=== PATIENT | female | born 1965 | race Caucasian/White ===

== ENCOUNTER 2016-10-26 15:57 | Emergency (ER) | payer BC ==
[~2016-10-26] VITALS: Ht 157.5 cm; Wt 97.8 kg
[~2016-10-26 15:57] MED LIST: LRT5 PO
[2016-10-26 16:14] VITALS: TEMP 36.7; O2SAT 97; Ht 157.5 cm; Wt 97.8 kg
[2016-10-26] MEDS ORDERED: ASPIRIN 324 MG CHEW PO STA (16:19)
[2016-10-26] MEDS ORDERED: CZR50 PO (16:26)
[2016-10-26] MEDS ORDERED: CHOL1000 PO (16:27)
[2016-10-26] MEDS ORDERED: NITROGLYCERIN OINT 2% 1GM PACKET EXT ONE (16:30)
[2016-10-26] MEDS ORDERED: SODIUM CHLORIDE 0.9% 1000ML 1,000 ML IV ONE (16:30)
[2016-10-26 16:41] LABS: BASO % 0.7 %; BASO ABS # 0.09 K/uL (0-0.2); COMPLETE YES; EOS % 1.4 %; HEMATOCRIT 45.9 % (37-47); IG% 0.1 %; LYMPH % 20.8 %; LYMPH ABS # 2.78 K/uL (1.2-3.4); MEAN CELL VOLUME 92.5 fL (80-100); MEAN CORPUSCULAR HEMOGLOBIN 31.5 pg (25-34); MEAN PLATELET VOLUME 10.8 fL (7.4-10.4); PLATELET COUNT 310 K/uL (130-400); RED BLOOD COUNT 4.96 M/uL (4.2-5.4); WHITE BLOOD COUNT 13.34 K/uL (4.8-10.8)
--- NOTE | 2016-10-26 16:44 | DIAGNOSTIC IMAGING REPORT ---
CHEST ONE VIEW PORTABLE CLINICAL HISTORY: Difficult chest pain COMPARISON STUDY: No previous studies for comparison. FINDINGS: The cardiac and mediastinal contours are normal. There is no evidence of focal pulmonary consolidation. There is no evidence of failure. No pleural effusions are visualized.[ IMPRESSION: No active disease in the chest. Electronically signed by: Jordin Caban M.D. 10/26/2016 4:43 PM Dictated Date/Time: 10/26/2016 4:42 PM
[2016-10-26 16:56] LABS: POINT OF CARE TROPONIN I < 0.030 ng/ml (0-0.045)
[2016-10-26 17:06] LABS: CREATININE 0.75 mg/dl (0.60-1.20); MAGNESIUM 2.2 mg/dl (1.8-2.4); POTASSIUM 3.7 mmol/L (3.5-5.1)
[2016-10-26 17:17] LABS: THYROID STIMULATING HORMONE 0.944 uIu/ml (0.300-4.500)
[2016-10-26 17:54] LABS: MANUAL MICROSCOPIC REQUIRED? NO; REVIEW REQ? NO; URINE APPEARANCE CLEAR (CLEAR); URINE BILIRUBIN NEG (NEG); URINE COLOR YELLOW; URINE EPITHELIAL CELL AUTO 20-30 /lpf (0-5); URINE NITRITE NEG (NEG); URINE PH 6.5 (4.5-7.5); UROBILINOGEN NEG (NEG); ZZUR CULT IF INDIC CLEAN CATCH NO
[2016-10-26] MEDS ORDERED: ONDANSETRON INJ 2 MG/ML 2 ML VIAL IV STA (18:26)
[2016-10-26] MEDS ORDERED: KETOROLAC TROMETHAMINE 30 MG/ML VIAL IV STA (18:26)
[2016-10-26] MEDS ORDERED: MoRPHine SULFATE 4 MG/ML 1 ML CARP\\VIAL IV ONE (18:30)
[2016-10-26 18:53] VITALS: BP 122/80; PULSE 72; O2SAT 98
--- NOTE | 2016-10-26 22:22 | EMERGENCY ROOM VISIT NOTE ---
History First contact with patient: 16:11 Chief Complaint: CHEST PAIN Stated Complaint: CHEST PAIN Nursing Triage Summary: Patient reports a several month history of intermittent epigastric/lower chest presure, described as a burning indigestion feeling. Patient reports simiar symptoms 19 years ago and was diagnosed with gallbladder issues. Patient denies any nausea/vomiting/diaphoresis, SOB, or diarrhea. History of Present Illness The patient is a 51 year old female who presents to the Emergency Room with complaints of substernal chest pain off-and-on for the past several months. The patient states that her pain is typically like a burning/indigestion feeling. Her symptoms do not appear to improve or worsen with food or activity. She does not have fever, chills, nausea, vomiting, diarrhea, or shortness of breath. She attempted to get in with her primary care physician's office, and evidently has an appointment in 4 hours. She elected to come to the emergency department due to her symptoms. She rates her current pain a 7/ 10. She has not taken anything [id number] for her symptoms. She does not have a history of coronary artery disease or diabetes. She does have hypertension and takes losartan. She does not report a family history of cardiopulmonary disease. No injury or trauma. No recent travel history. Review of Systems More than 10 systems were reviewed and otherwise negative with the exception of history of present illness. Past Medical/Surgical History Medical Problems: (1) Benign hypertension (2) Bilateral tubal ligation (3) TOBACCO USE DISORDER Family History No pertinent family history Social History Smoking Status: Current Every Day Smoker Alcohol Use: occasionally Marital Status: Occupation Status: employed Current/Historical Medications Scheduled Cholecalciferol (Vitamin D3), 1,000 INTER.UNIT PO HS Losartan Potassium (Losartan Potassium), 50 MG PO QPM Physical Exam Vital Signs Date Time Temp Pulse Resp B/P (MAP) Pulse Ox O2 Delivery O2 Flow Rate FiO2 10/26/16 18:53 72 20 122/80 98 Room Air 10/26/16 17:49 82 16 174/93 96 10/26/16 16:57 77 27 99 10/26/16 16:28 91 10/26/16 16:27 94 18 97 10/26/16 16:14 97 Room Air 10/26/16 16:14 36.7 91 24 188/109 97 Room Air 10/26/16 16:05 188/109 Pain Rating (0-10): 0 Physical Exam VITALS: Vitals are noted on the nurse's note and reviewed by myself. Vital signs with elevated blood pressure GENERAL: Well-developed, well-nourished, white female, who is in no acute distress and resting comfortably. Patient is cooperative with the examination. HEAD: Normocephalic atraumatic. HEART: Regular rate and rhythm without murmurs gallops or rubs. LUNGS: Clear to auscultation bilaterally without wheezes, rales or rhonchi. No retractions or accessory muscle use. ABDOMEN: Positive normal bowel sounds x 4. Soft, nontender, without masses or organomegaly. No guarding or rebound tenderness. No CVA tenderness MUSCULOSKELETAL: No muscle atrophy, erythema, or edema noted. Full range of motion without joint tenderness in all extremities. Negative Homans sign Medical Decision & Procedures ER Provider Diagnostic Interpretation: CHEST ONE VIEW PORTABLE CLINICAL HISTORY: Difficult chest pain COMPARISON STUDY: No previous studies for comparison. FINDINGS: The cardiac and mediastinal contours are normal. There is no evidence of focal pulmonary consolidation. There is no evidence of failure. No pleural effusions are visualized.[ IMPRESSION: No active disease in the chest. Laboratory Results 10/26/16 16:03 Red Blood Count 4.96, Mean Corpuscular Volume 92.5, Mean Corpuscular Hemoglobin 31.5, Mean Corpuscular Hemoglobin Concent 34.0, Mean Platelet Volume 10.8, Neutrophils (%) (Auto) 70.0, Lymphocytes (%) (Auto) 20.8, Monocytes (%) (Auto) 7.0, Eosinophils (%) (Auto) 1.4, Basophils (%) (Auto) 0.7, Neutrophils # (Auto) 9.32, Lymphocytes # (Auto) 2.78, Monocytes # (Auto) 0.94, Eosinophils # (Auto) 0.19, Basophils # (Auto) 0.09 10/26/16 16:03 Test 10/26/16 00:00 10/26/16 16:03 10/26/16 16:37 Urine Color YELLOW Urine Appearance CLEAR (CLEAR) Urine pH 6.5 (4.5-7.5) Urine Specific [place] 1.020 (1.000-1.030) Urine Protein NEG (NEG) Urine Glucose (UA) NEG (NEG) Urine Ketones NEG (NEG) Urine Occult Blood TRACE (NEG) Urine Nitrite NEG (NEG) Urine Bilirubin NEG (NEG) Urine Urobilinogen NEG (NEG) Urine Leukocyte Esterase NEG (NEG) Urine WBC (Auto) 1-5 /hpf (0-5) Urine RBC (Auto) 5-10 /hpf (0-4) Urine Hyaline Casts (Auto) 1-5 /lpf (0-5) Urine Epithelial Cells (Auto) 20-30 /lpf (0-5) Urine Bacteria (Auto) NEG (NEG) White Blood Count 13.34 K/uL (4.8-10.8) Red Blood Count 4.96 M/uL (4.2-5.4) Hemoglobin 15.6 g/dL (12.0-16.0) Hematocrit 45.9 % (37-47) Mean Corpuscular Volume 92.5 fL (80-100) Mean Corpuscular Hemoglobin 31.5 pg (25-34) Mean Corpuscular Hemoglobin Concent 34.0 g/dl (32-36) Platelet Count 310 K/uL (130-400) Mean Platelet Volume 10.8 fL (7.4-10.4) Neutrophils (%) (Auto) 70.0 % Lymphocytes (%) (Auto) 20.8 % Monocytes (%) (Auto) 7.0 % Eosinophils (%) (Auto) 1.4 % Basophils (%) (Auto) 0.7 % Neutrophils # (Auto) 9.32 K/uL (1.4-6.5) Lymphocytes # (Auto) 2.78 K/uL (1.2-3.4) Monocytes # (Auto) 0.94 K/uL (0.11-0.59) Eosinophils # (Auto) 0.19 K/uL (0-0.5) Basophils # (Auto) 0.09 K/uL (0-0.2) RDW Standard Deviation 47.3 fL (36.4-46.3) RDW Coefficient of Variation 14.0 % (11.5-14.5) Immature Granulocyte % (Auto) 0.1 % Immature Granulocyte # (Auto) 0.02 K/uL (0.00-0.02) Anion Gap 6.0 mmol/L (3-11) Est Creatinine Clear Calc Drug Dose 99.1 ml/min Estimated GFR () 108.5 Estimated GFR (Non- 93.6 BUN/Creatinine Ratio 16.0 (10-20) Calcium Level 9.0 mg/dl (8.5-10.1) Magnesium Level 2.2 mg/dl (1.8-2.4) Total Bilirubin 0.3 mg/dl (0.2-1) Aspartate Amino Transf (AST/SGOT) 16 U/L (15-37) Alanine Aminotransferase (ALT/SGPT) 20 U/L (12-78) Alkaline Phosphatase 77 U/L (45-117) Total Protein 7.3 gm/dl (6.4-8.2) Albumin 3.7 gm/dl (3.4-5.0) Globulin 3.6 gm/dl (2.5-4.0) Albumin/Globulin Ratio 1.0 (0.9-2) Lipase 126 U/L (73-393) Thyroid Stimulating Hormone (TSH) 0.944 uIu/ml (0.300-4.500) Bedside D-Dimer 325 ng/mlFEU (0-450) Bedside Troponin I < 0.030 ng/ml (0-0.045) Medications Administered Medications (Trade) Dose Ordered Sig/Lucas Route Start Time Stop Time Status Last Admin Dose Admin Aspirin (Aspirin Chew) 324 mg NOW STAT PO 10/26/16 16:19 10/26/16 16:21 DC 10/26/16 16:43 324 MG Nitroglycerin (Nitroglycerin 2% Oint) 1 inch NOW ONCE EXT 10/26/16 16:30 10/26/16 16:31 DC 10/26/16 16:44 1 INCH Sodium Chloride 1,000 ml @ 999 mls/hr Q1H1M ONCE IV 10/26/16 16:30 10/26/16 17:30 DC 10/26/16 16:43 999 MLS/HR Morphine Sulfate (MoRPHine SULFATE INJ) 4 mg NOW ONCE IV 10/26/16 18:30 10/26/16 18:31 DC 10/26/16 18:38 4 MG Ketorolac Tromethamine (Toradol Inj) 30 mg NOW STAT IV 10/26/16 18:26 10/26/16 18:27 DC 10/26/16 18:38 30 MG Ondansetron HCl (Zofran Inj) 4 mg NOW STAT IV 10/26/16 18:26 10/26/16 18:27 DC 10/26/16 18:38 4 MG ECG Change: Normal sinus rhythm @75 bpm Possible Left atrial enlargement Low voltage QRS Borderline ECG When compared with ECG of 22-JAN-1997 08:02, No significant change was found ED Course Physical exam and history were performed. Nursing notes, EMR, and Medication List were personally reviewed. Patient appears to have substernal chest pain off and on for the past several months. On examination the patient does not have reproducible tenderness. IV access was established and labs were obtained. The patient was given aspirin and 1 inch Nitropaste. EKG was without acute ST elevation or signs of ischemia. She was placed on the environmental monitoring technician. The patient's blood work is as above and was reviewed. She does have a very slightly elevated white blood cell count of 13,000. She does not have a significant anemia, bandemia, or gross electrolyte imbalance. Lipase and transaminases are nondiagnostic. Troponin 1 is negative. D-dimer is also negative. Chest x-ray was without acute findings. She remained in normal sinus rhythm on the environmental monitoring technician. The aspirin and nitro paste did not improve her pain. On reevaluation the patient continued without palpable tenderness. I clinically suspect that her symptoms may be related to a gastritis or GERD. Last likely, but certainly possible, would be biliary colic, however the patient does not have right upper quadrant tenderness at this time. I discussed the case with my attending physician, and we feel the patient is low risk for cardiopulmonary events. She does have a preference for discharge home, which appears reasonable. The patient was given IV morphine and IV Toradol prior to discharge. She may continue [id number] analgesics at home. She will need to have close follow-up with her primary care physician, as she may need endoscopy or further workup as an outpatient. The patient and family were invited back to the ER with any new, worsening, or concerning symptoms. The patient was pleased with discharge and rated her discomfort a 0/ 10 at the time of departure. She was discharged home with her who is acting as the driver guide today. The chart was completed utilizing [employer] Voice Recognition Software. Grammatical errors, random word insertions, pronoun errors, and incomplete sentences are an occasional consequence of this system due to software limitations, ambient noise, and hardware issues. Any formal questions or concerns about the content, text, or information contained within the body of this dictation should be directly addressed to the provider for clarification. . Medical Decision Differential diagnosis includes, but is not limited to: Myocardial infarction, dysrhythmia, pericarditis, pneumothorax, aortic aneurysm/dissection, DVT/PE, anxiety, GERD, PUD, electrolyte imbalance, thyroid disorder, pneumonia, bronchitis, pancreatitis, and others Medication Reconcilliation Current Medication List: was personally reviewed by me Blood Pressure Screening Patient's blood pressure: Elevated blood pressure Blood pressure disposition: Elevated BP felt to be situational (BP improved while in ER care. Follow up with PCP. ) Impression Primary Impression: Substernal chest pain Departure Information Dispostion Home / Self-Care Forms HOME CARE DOCUMENTATION FORM, IMPORTANT VISIT INFORMATION Patient Instructions [facility] Additional Instructions You were seen and evaluated today on an emergency basis only. This is not a substitute for, or an effort to provide, complete comprehensive medical care. It is not possible to recognize and treat all injuries or illnesses in a single emergency department visit. For this reason it is recommended that you followup with your primary care physician on Sunday or Sunday for recheck of your condition. Call tomorrow morning to help make her appointment. Let them know you were in the ER to help facilitate appointment. For baseline pain relief you may alternate ibuprofen and acetaminophen every 4 hours for pain control. Take 600 mg ibuprofen (Advil) and then 4 hours later take 1000 mg acetaminophen (Tylenol). Do not take more than 3000 mg acetaminophen in a single day. Drink plenty of fluids and remain well hydrated. If your symptoms worsen or evolve, please return to the emergency department anytime.
[2016-11-23] MEDS ORDERED: LOSA1TAB38 PO (13:27)
[2016-11-23] MEDS ORDERED: NXM/40 PO (13:28)
[2016-11-23] MEDS ORDERED: CHOL100010 PO (13:29)
== END 2016-10-26 19:10 | disposition home or self-care (01) ==
LOC: C.EDB 15:59 → C.EDC 19:10
DX: R07.2 Precordial pain (principal); I10 Essential (primary) hypertension; F17.200 Nicotine dependence, unspecified, uncomplicated; Z98.51 Tubal ligation status; Z79.899 Other long term (current) drug therapy

== ENCOUNTER → 2016-10-31 | Outpatient (CLI) | payer BC ==
[~2016-10-31] MED LIST changes: +CHOL1000 PO; +CHOL100010 PO; +CZR50 PO; +IBUP600T44 PO; +LOSA1TAB38 PO; -LRT5 PO; +NXM/40 PO; +OXYC-57 PO
--- NOTE | 2016-10-31 09:20 | DIAGNOSTIC IMAGING REPORT ---
ABDOMEN COMPLETE (US) CLINICAL HISTORY: Generalized abdominal pain. COMPARISON STUDY: No previous studies for comparison. FINDINGS: This exam is mildly compromised by suboptimal penetration. Hepatic echogenicity is slightly increased. No hepatic lesions are identified and there is no biliary ductal dilatation. Common bile duct measures 4 mm in caliber. There is a large gallstone within the gallbladder. This measures approximately 5.2 cm. There is no gallbladder wall thickening. There may be adenomyomatosis within the gallbladder wall. There is no pericholecystic fluid. The pancreas is partially obscured. The pancreatic body is normal. The size of the spleen is normal. The right kidney measures 11.5 cm and the left measures 11.3 cm. There is a small left parapelvic cyst. There is no hydronephrosis. Renal echogenicity, size and cortical thickness are normal. The caliber of the abdominal aorta is normal. Visualized portions of the IVC are patent. IMPRESSION: 1. Large gallstone within the gallbladder. No gallbladder wall thickening. No sonographic evidence of acute cholecystitis. 2. No biliary ductal dilatation. 3. Possible fatty infiltration of liver. 4. Partially obscured pancreas. Electronically signed by: Bry Marcano M.D. 10/31/2016 9:19 AM Dictated Date/Time: 10/31/2016 9:12 AM
== END | disposition home or self-care (01) ==
LOC: C.ULTRBC 08:16
PROVIDERS: ATTEND Family Medicine
DX: R10.84 Generalized abdominal pain (principal); K80.20 Calculus of gallbladder without cholecystitis without obstruction

== ENCOUNTER 2016-11-29 07:33 | Day surgery (SDC) | payer BC ==
[2016-11-23 13:30] VITALS: BMI 38.0
[~2016-11-29] VITALS: Ht 157.5 cm; Wt 95.9 kg
[~2016-11-29 07:33] MED LIST changes: +CEFOXITIN IV 2,000 MG in DEXTROSE 5% 50ML 50 ML IV SCH; -CHOL1000 PO; -CZR50 PO; -IBUP600T44 PO; +LACTATED RINGER'S 1000ML 1,000 ML IV SCH; -OXYC-57 PO
[2016-11-29 07:55] VITALS: BP 180/88; PULSE 78; TEMP 36.6; O2SAT 97; Ht 157.5 cm; Wt 95.9 kg
[2016-11-29] MEDS ORDERED: PROPOFOL IV EMULSION 10 MG/ML 20 ML VIAL IV ONE (07:56)
[2016-11-29] MEDS ORDERED: LIDOCAINE HCL 2% 2 ML VIAL (20MG/ML) ONE (07:56)
[2016-11-29] MEDS ORDERED: MIDAZOLAM HCL 1 MG/ML 2ML VIAL ONE (07:57)
[2016-11-29] MEDS ORDERED: FENTANYL CITRATE INJ 50 MCG/1 ML 2 ML VIAL ONE ×5 (07:57→10:52)
--- NOTE | 2016-11-29 08:31 | History & Physical Bridge Note ---
H&P Re-Evaluation Bridge Note: I have examined the patient, reviewed the History & Physical and in the interval since the performance of the History & Physical I have noted the following changes of clinical significance: No changes noted
[2016-11-29] MEDS ORDERED: SODIUM CHLORIDE 0.9% PF 50 ML VIAL ONE (08:32)
[2016-11-29] MEDS ORDERED: BUPIVACAINE 0.5 % 5 MG/1 ML MPF 30ML VIAL ONE (08:33)
[2016-11-29] MEDS ORDERED: LARYING-O-JET KIT (LTA) ONE ×2 (08:37)
[2016-11-29] MEDS ORDERED: PROMETHAZINE HCL INJ 6.25 MG in SODIUM CHLORIDE 0.9% 50ML 50 ML IV PRN (09:00)
[2016-11-29] MEDS ORDERED: ONDANSETRON INJ 2 MG/ML 2 ML VIAL IV PRN ×2 (09:00→10:45)
[2016-11-29] MEDS ORDERED: ATROPINE SULFATE 0.1 MG/ML 5ML SYR IV PRN (09:00)
[2016-11-29] MEDS ORDERED: FENTANYL CITRATE INJ 50 MCG/1 ML 2 ML VIAL IV PRN (09:00)
[2016-11-29] MEDS ORDERED: EpHEDrine SULFATE INJ 50 MG/ML AMP IV PRN (09:00)
[2016-11-29] MEDS ORDERED: DEXAMETHASONE SOD INJ 4 MG/ML VIAL ONE (09:08)
[2016-11-29] MEDS ORDERED: ONDANSETRON INJ 2 MG/ML 2 ML VIAL ONE (09:08)
[2016-11-29] MEDS ORDERED: EpHEDrine SULFATE INJ 50 MG/ML AMP ONE (10:09)
[2016-11-29] MEDS ORDERED: GLYCOPYRROLATE INJ 0.2 MG/ML VIAL ONE (10:09)
[2016-11-29] MEDS ORDERED: NEOSTIGMINE METHYLSULFATE 5 MG/5 ML SYR ONE (10:09)
[2016-11-29] MEDS ORDERED: KETOROLAC TROMETHAMINE 30 MG/ML VIAL ONE (10:15)
--- NOTE | 2016-11-29 10:24 | [facility] Post Operative Brief Note ---
Immediate Operative Summary Operative Date Nov 29, 2016. Pre-Operative Diagnosis Calculus of bile duct without cholecystitis, without obstruction Post-Operative Diagnosis Calculus of bile duct chronic cholecystitis, without obstruction; intra-abdominal adhesions Procedure(s) Performed Laparoscopic Cholecystectomy; lysis of adhesions Surgeon Dr. Fisher Inspector Fuel Hose Surgeon(s) JAYNE Peralta, MS-4 Estimated Blood Loss 5 cc Findings midline omental adhesions taken down with cautery. Gallbladder with large stone , chronic cholecystitis. window of safety obtained, cystic duct and artery doubly clipped and divided. Good hemostasis. fascial incision extended. Specimens A: Gallbladder and contents Drains None Anesthesia GETA Complication(s) None Disposition Recovery Room / PACU
--- NOTE | 2016-11-29 10:30 | [facility] Operative Report ---
Operative Report Operative Date Nov 29, 2016. Pre-Operative Diagnosis Calculus of bile duct without cholecystitis, without obstruction Surgeon Dr. Fisher Gem Expert Surgeon(s) JAYNE Peralta, MS-4 Estimated Blood Loss 5 cc Findings midline omental adhesions taken down with cautery. Gallbladder with large stone , chronic cholecystitis. window of safety obtained, cystic duct and artery doubly clipped and divided. Good hemostasis. fascial incision extended. Specimens A: Gallbladder and contents Drains None Anesthesia GETA Complication(s) None Disposition Recovery Room / PACU Indications 51-year-old female with symptomatic cholelithiasis, plan for laparoscopic cholecystectomy with possible intraoperative cholangiogram. The risks of the procedure were discussed, all questions were answered, and the patient agreed to proceed with surgery as planned. Description of Procedure The patient was properly identified, consented, and taken to the operating room where she was placed in the supine position. General endotracheal anesthesia was induced. SCDs and a safety belt were placed. Preoperative antibiotics were administered. The patient's abdomen was prepped and draped in the standard sterile fashion. A surgical timeout was performed and all parties were in agreement that this was the correct patient and procedure to be performed and we continued as planned. A curvilinear, supra-with the umbilical incision was made with electrocautery and deepened down to the fascia with blunt dissection. The base of the umbilicus was grasped with a Rom and elevated towards the ceiling. An incision was made in the midline fascia with a knife and entry into the peritoneum was confirmed. Stay suture of 0 Vicryl was placed and a Martini trocar was inserted. The abdomen was insufflated with carbon dioxide which the patient tolerated without incident. The laparoscope was inserted and no damage from initial trocar placement was noted. There were omental adhesions to the midline, no other gross abnormalities were noted within the 4 quadrants of the abdomen. 5 mm ports were then placed in the subxiphoid position in the midline and 2 in the right subcostal position. The patient was placed in reverse Trendelenburg position and rotated towards the left. Midline adhesions were taken down with electrocautery and blunt dissection. The dome of the gallbladder was retracted towards the left upper quadrant and the infundibulum was retracted toward the right lower quadrant revealing Calot' s triangle. The gallbladder appeared clinically inflamed had a large gallstone. Peritoneal attachments were taken down with electrocautery and blunt dissection. The cystic duct and artery were circumferentially dissected. A window of safety was obtained showing the cystic duct entering the gallbladder with no aberrant structures noted. The cystic duct and artery were doubly clipped and divided. The gallbladder was then lifted off the gallbladder fossa with electrocautery. The gallbladder was placed in an Endo Catch bag and the bag tore during attempts to remove it through the umbilical port site. The fascial and skin incisions were enlarged to allow removal of the gallbladder and the large stone. The right upper quadrant was irrigated and hemostasis was found to be good. 5 mm trochars were removed under direct visualization and the abdomen was allowed to collapse. The umbilical port site fascia was closed with interrupted 0 Vicryl [id number] sutures. The wound was irrigated, and the skin of all ports was closed with 4-0 Monocryl subcuticular sutures. Dermabond was placed over the wounds. The patient was extubated in the operating room and taken to the PACU where she recovered without apparent incident. All sponge, instrument and needle counts were correct at the conclusion of the procedure. The patient tolerated the procedure well. I attest to the content of the Intraoperative Record and any orders documented therein. Any exceptions are noted below.
[2016-11-29] MEDS ORDERED: LACTATED RINGER'S 1000ML 1,000 ML IV SCH (10:37)
[2016-11-29] MEDS ORDERED: IBUP600T44 PO (10:39)
[2016-11-29] MEDS ORDERED: OXYC-57 PO (10:39)
--- NOTE | 2016-11-29 10:40 | Discharge Instructions ---
Discharge Instructions Date of Service Nov 29, 2016. Visit Reason for Visit: Calculus Of Bile Duct W/O Cholecystitis & Obstruct Discharge Discharge Diagnosis / Problem: laparoscopic cholecystectomy Discharge Goals Goal(s): Decrease discomfort Activity Recommendations Activity Limitations: as noted below Lifting Limitations: no more than 10 pounds Shower/Bathe: no limitations Driving or Machine Use: resume 3 days after discharge (if not taking Percocet) Anesthesia . Post Anesthesia Instructions: If you have had General Anesthesia or IV Sedation: * Do not drive today. * Resume driving when surgeon permits. * Do not make important decisions or sign legal documents today. * Call surgeon for: 1. Temperature elevations greater than 101 degrees F. 2. Uncontrollable pain. 3. Excessive bleeding. 4. Persistent nausea and vomiting. 5. Medication intolerance (nausea, vomiting or rash). * For nausea and vomiting use only clear liquids such as: tea, soda, bouillon until nausea subsides, then gradually increase diet as tolerated. * If you have any concerns or questions, call your surgeon's office. If physician is unavailable and it is an emergency, call 911 or go to the nearest emergency room. . Diet Recommendations Recommended Home Diet: no limitations Procedures Procedures Performed: Laparoscopic Cholecystectomy; lysis of adhesions Pending Studies Studies pending at discharge: no Medical Emergencies . Who to Call and When: Medical Emergencies: If at any time you feel your situation is an emergency, please call 911 immediately. . Non-Emergent Contact Non-Emergency issues call your: Surgeon Call Non-Emergent contact if: you have a fever, temperature is above 101.5, your pain is not controlled, you have any medication questions . . "Provider Documentation" section prepared by Javan Squires. .
[2016-11-29] MEDS ORDERED: OXYCODONE/ACETAMINOPHEN 5-325 TAB PO PRN (10:45)
[2016-11-29] MEDS ORDERED: MoRPHine SULFATE 2 MG/ML CARP IV PRN (10:45)
[2016-11-29] MEDS ORDERED: KETOROLAC TROMETHAMINE 30 MG/ML VIAL IV. PRN (10:45)
--- NOTE | 2016-11-29 11:19 | Anesthesiology Progress Note ---
Anesthesia Post Op Note Date & Time Nov 29, 2016 at 11:19 Vital Signs Pain Intensity: 5 Vital Signs Past 12 Hours Date Time Temp Pulse Resp B/P (MAP) Pulse Ox O2 Delivery O2 Flow Rate FiO2 11/29/16 11:11 117/80 11/29/16 11:09 96 19 96 11/29/16 11:09 94 19 11/29/16 11:06 138/87 11/29/16 11:04 69 16 91 11/29/16 11:04 72 16 11/29/16 11:03 68 10 93 11/29/16 11:03 72 10 11/29/16 11:01 118/92 11/29/16 10:58 81 14 100 11/29/16 10:58 87 14 11/29/16 10:56 138/103 11/29/16 10:53 82 14 11/29/16 10:53 82 14 98 11/29/16 10:51 147/89 11/29/16 10:48 73 12 11/29/16 10:48 12 11/29/16 10:46 142/84 11/29/16 10:43 59 14 88 11/29/16 10:43 59 14 11/29/16 10:41 153/92 11/29/16 10:38 86 16 11/29/16 10:38 86 16 94 11/29/16 10:36 154/89 11/29/16 10:33 67 12 95 11/29/16 10:33 66 12 11/29/16 10:31 137/90 11/29/16 10:29 148/98 11/29/16 10:28 36.6 75 10 148/98 94 Oxymask 15 11/29/16 07:55 36.6 78 18 180/88 (118) 97 Room Air Notes Mental Status: alert / awake / arousable, participated in evaluation Pt Amnestic to Procedure: Yes Nausea / Vomiting: adequately controlled Pain: adequately controlled Airway Patency, RR, SpO2: stable & adequate BP & HR: stable & adequate Hydration State: stable & adequate Anesthetic Complications: no major complications apparent
[2016-11-29 11:30] VITALS: BP 118/73; PULSE 68; TEMP 36.7; O2SAT 96
[2016-11-29 12:00] VITALS: BP 122/76; PULSE 80; O2SAT 94
[2016-11-29] MEDS ORDERED: OXYCODONE/ACETAMINOPHEN 5-325 TAB ONE (12:00)
[2016-11-29 12:30] VITALS: BP 121/72; PULSE 86; TEMP 36.9; O2SAT 95
== END 2016-11-29 12:50 | disposition home or self-care (01) ==
LOC: C.ACU 07:33
PROVIDERS: ATTEND Surgery
DX: K80.64 Calculus of gallbladder and bile duct with chronic cholecystitis without obstruction (principal); K66.0 Peritoneal adhesions (postprocedural) (postinfection); I10 Essential (primary) hypertension; F17.210 Nicotine dependence, cigarettes, uncomplicated; E66.9 Obesity, unspecified